=== PATIENT | female | born 1990 | race Caucasian/White ===

== ENCOUNTER 2019-09-30 06:29 | Emergency (ER) | payer BC ==
[2019-09-30 06:38] VITALS: RESP 14; TEMP 97.9
[2019-09-30] MEDS ORDERED: SODIUM CHLORIDE 0.9% 1,000 ML IV STA (06:50)
--- NOTE | 2019-09-30 06:55 | ED ---
General Adult HPI - General Source: patient, family Mode of arrival: ambulatory Limitations: no limitations <Alex Velasco - Last Filed: 09/30/19 08:20> <Corina Slater - Last Filed: 09/30/19 21:40> - General Chief complaint: Syncope Stated complaint: 14wks, syncope Time Seen by Provider: 09/30/19 06:41 - History of Present Illness Initial comments: 29-year-old female currently 14 weeks presents to the emergency department for a chief complaint of syncopal episode. Patient states that she got up early this morning to help her get ready for work. States that she was walking to the kitchen when she felt a sudden "gas pain" in her upper abdomen. He states that it was not severe but at the same time she started to get tunnel vision. States that a moment later she woke up on the floor with her over her. Patient states that the pain is completely gone at this time. She denies any associated chest pain or shortness of breath. States she is feeling normal at this time. Patient has had a confirmed intrauterine . Patient has no other complaints at this time including shortness of breath, chest pain, nausea or vomiting, headache, or visual changes. (Alex Velasco) - Related Data Previous Rx's Medication Instructions Recorded Acetaminophen-Codeine 300-30mg 1 each PO Q4HR PRN #20 tab 03/30/16 [Tylenol w/codeine #3] Ibuprofen [Motrin] 600 mg PO Q6HR PRN #0 tab 03/30/16 Sennosides-Docusate Sodium 2 each PO BID@0800,2000 tab 03/30/16 [Senokot-S] Allergies Allergy/AdvReac Type Severity Reaction Status Date / Time No Known Allergies Allergy Verified 03/27/16 06:10 Review of Systems ROS Other: All systems not noted in ROS Statement are negative. <Alex Velasco - Last Filed: 09/30/19 08:20> ROS Other: All systems not noted in ROS Statement are negative. <Corina Slater - Last Filed: 09/30/19 21:40> ROS Statement: Those systems with pertinent positive or pertinent negative responses have been documented in the HPI. Past Medical History Past Medical History: No Reported History History of Any Multi-Drug Resistant Organisms: None Reported Past Surgical History: Cholecystectomy Additional Past Surgical History / Comment(s): wisdom teeth 2009 Past Anesthesia/Blood Transfusion Reactions: No Reported Reaction Past Psychological History: No Psychological Hx Reported Smoking Status: Never smoker Past Alcohol Use History: None Reported Past Drug Use History: None Reported - Past Family History Mother Family Medical History: No Reported History <Alex Velasco P - Last Filed: 09/30/19 08:20> General Exam Limitations: no limitations General appearance: alert, in no apparent distress Head exam: Present: atraumatic, normocephalic, normal inspection Eye exam: Present: normal appearance, PERRL, EOMI. Absent: scleral icterus, conjunctival injection, periorbital swelling ENT exam: Present: normal exam, mucous membranes moist Neck exam: Present: normal inspection, full ROM. Absent: tenderness, meningismus, lymphadenopathy Respiratory exam: Present: normal lung sounds bilaterally. Absent: respiratory distress, wheezes, rales, rhonchi, stridor Cardiovascular Exam: Present: regular rate, normal rhythm, normal heart sounds. Absent: systolic murmur, diastolic murmur, rubs, gallop, clicks GI/Abdominal exam: Present: soft, normal bowel sounds. Absent: distended, tenderness, guarding, rebound, rigid Extremities exam: Absent: calf tenderness <Alex Velasco - Last Filed: 09/30/19 08:20> Course Vital Signs 09/30/19 09/30/19 06:32 08:00 Temperature 97.9 F 97.9 F Pulse Rate 132 H 101 H Respiratory 14 14 Rate Blood Pressure 142/86 124/80 O2 Sat by Pulse 97 99 Oximetry EKG Findings - EKG Comments: EKG Findings:: Sinus tachycardia, ventricular rate 124, IL interval 138, QTC 448 <Alex Velasco P - Last Filed: 09/30/19 08:20> Medical Decision Making - Lab Data Result diagrams: 09/30/19 06:58 09/30/19 06:58 <Alex Velasco - Last Filed: 09/30/19 08:20> - Lab Data Result diagrams: 09/30/19 06:58 09/30/19 06:58 <Corina Slater - Last Filed: 09/30/19 21:40> - Medical Decision Making Patient presents initially tachycardic. She is very anxious at presentation. HPI and physical exam as documented. Patient does not have any vaginal bleeding or lower abdominal pain. She did have one episode of epigastric discomfort that has completely resolved. She states she is feeling her normal self at this time. CBC is unremarkable. CMP unremarkable as well. Patient was given a liter of fluids. We did attempt heart sounds however these were unsuccessful. Therefore ultrasound was ordered which showed a single viable intrauterine with a heart rate of 160. EKG showed sinus tachycardia with a ventricular rate of 124. Troponin negative. A d-dimer 0.71. When adjusted for second trimester this is less then 1.00 which is the recommended cut off value for CT for PE. However I did discuss concern with patient as well as her and offered CAT scan. Patient and her did speak about this and at this time as she feels completely normal without any symptoms of chest pain or shortness of breath she declines CAT scan. However she is agreeable to return for any worsening symptoms under strict return parameters. Patient's heart rate did improve to 101 after fluids. She will al so follow up with her [facility] [employer] [facility] by calling today for an appointment. (Alex Velasco) I was available for consultation in the emergency department. The history and physical exam were done by the midlevel provider. I was consulted for this patients care. I reviewed the case with the midlevel provider and based on their presentation of the patient, I agree with the assessment, medical decision making and plan of care as documented. Chart was dictated using codebender dictation software. Attempts were made to correct any dictation errors however some typographical errors may persist. Patient was seen during a national state of emergency due to the Covid-19 pandemic. (Corina Slater) - Lab Data Lab Results 09/30/19 09/30/19 09/30/19 Range/Units 06:58 06:58 06:58 WBC 8.9 (3.8-10.6) k/uL RBC 4.35 (3.80-5.40) m/uL Hgb 13.9 (11.4-16.0) gm/dL Hct 42.0 (34.0-46.0) % MCV 96.4 (80.0-100.0) fL MCH 32.0 (25.0-35.0) pg MCHC 33.2 (31.0-37.0) g/dL RDW 13.6 (11.5-15.5) % Plt Count 286 (150-450) k/uL Neutrophils % 77 % Lymphocytes % 13 % Monocytes % 5 % Eosinophils % 3 % Basophils % 1 % Neutrophils # 6.8 (1.3-7.7) k/uL Lymphocytes # 1.2 (1.0-4.8) k/uL Monocytes # 0.4 (0-1.0) k/uL Eosinophils # 0.2 (0-0.7) k/uL Basophils # 0.1 (0-0.2) k/uL PT 9.5 (9.0-12.0) sec INR 0.9 (<1.2) APTT 21.1 L (22.0-30.0) sec D-Dimer (<0.60) mg/L FEU Sodium 136 L (137-145) mmol/L Potassium 3.6 (3.5-5.1) mmol/L Chloride 106 (98-107) mmol/L Carbon Dioxide 20 L (22-30) mmol/L Anion Gap 10 mmol/L BUN 9 (7-17) mg/dL Creatinine 0.46 L (0.52-1.04) mg/dL Est GFR (CKD-EPI)AfAm >90 (>60 ml/min/1.73 sqM) Est GFR (CKD-EPI)NonAf >90 (>60 ml/min/1.73 sqM) Glucose 102 H (74-99) mg/dL Calcium 9.5 (8.4-10.2) mg/dL Magnesium 1.6 (1.6-2.3) mg/dL Total Bilirubin 1.2 (0.2-1.3) mg/dL AST 21 (14-36) U/L ALT 11 (4-34) U/L Alkaline Phosphatase 73 (38-126) U/L Troponin I (0.000-0.034) ng/mL Total Protein 7.7 (6.3-8.2) g/dL Albumin 4.0 (3.5-5.0) g/dL Urine Color Urine Appearance (Clear) Urine pH (5.0-8.0) Ur Specific [place] (1.001-1.035) Urine Protein (Negative) Urine Glucose (UA) (Negative) Urine Ketones (Negative) Urine Blood (Negative) Urine Nitrite (Negative) Urine Bilirubin (Negative) Urine Urobilinogen (<2.0) mg/dL Ur Leukocyte Esterase (Negative) 09/30/19 09/30/19 09/30/19 Range/Units 06:58 06:58 07:01 WBC (3.8-10.6) k/uL RBC (3.80-5.40) m/uL Hgb (11.4-16.0) gm/dL Hct (34.0-46.0) % MCV (80.0-100.0) fL MCH (25.0-35.0) pg MCHC (31.0-37.0) g/dL RDW (11.5-15.5) % Plt Count (150-450) k/uL Neutrophils % % Lymphocytes % % Monocytes % % Eosinophils % % Basophils % % Neutrophils # (1.3-7.7) k/uL Lymphocytes # (1.0-4.8) k/uL Monocytes # (0-1.0) k/uL Eosinophils # (0-0.7) k/uL Basophils # (0-0.2) k/uL PT (9.0-12.0) sec INR (<1.2) APTT (22.0-30.0) sec D-Dimer 0.71 H (<0.60) mg/L FEU Sodium (137-145) mmol/L Potassium (3.5-5.1) mmol/L Chloride (98-107) mmol/L Carbon Dioxide (22-30) mmol/L Anion Gap mmol/L BUN (7-17) mg/dL Creatinine (0.52-1.04) mg/dL Est GFR (CKD-EPI)AfAm (>60 ml/min/1.73 sqM) Est GFR (CKD-EPI)NonAf (>60 ml/min/1.73 sqM) Glucose (74-99) mg/dL Calcium (8.4-10.2) mg/dL Magnesium (1.6-2.3) mg/dL Total Bilirubin (0.2-1.3) mg/dL AST (14-36) U/L ALT (4-34) U/L Alkaline Phosphatase (38-126) U/L Troponin I <0.012 (0.000-0.034) ng/mL Total Protein (6.3-8.2) g/dL Albumin (3.5-5.0) g/dL Urine Color Yellow Urine Appearance Clear (Clear) Urine pH 6.0 (5.0-8.0) Ur Specific [place] 1.022 (1.001-1.035) Urine Protein Trace H (Negative) Urine Glucose (UA) Negative (Negative) Urine Ketones Negative (Negative) Urine Blood Negative (Negative) Urine Nitrite Negative (Negative) Urine Bilirubin Negative (Negative) Urine Urobilinogen 2.0 (<2.0) mg/dL Ur Leukocyte Esterase Negative (Negative) Disposition Is patient prescribed a controlled substance at d/c from ED?: No Time of Disposition: 08:19 <Alex Velasco - Last Filed: 09/30/19 08:20> <Corina Slater - Last Filed: 09/30/19 21:40> Clinical Impression: Syncope Disposition: HOME SELF-CARE Condition: Good Instructions (If sedation given, give patient instructions): Syncope (ED) Additional Instructions: Please follow up closely with primary care as well as [facility] [employer] [facility]. If you have any worsening symptoms such as chest pain, shortness of breath, or if you pass out again return to the emergency room. Referrals: Hernan Naranjo MD [REFERRING] - 1-2 days Lydia Evans MD [STAFF PHYSICIAN] - 1-2 days
[2019-09-30 07:09] LABS: Basophils # (A) 0.1 k/uL (0-0.2); Basophils % (A) 1 %; Eosinophils # (A) 0.2 k/uL (0-0.7); Eosinophils % (A) 3 %; HGB 13.9 gm/dL (11.4-16.0); Lymphocytes # (A) 1.2 k/uL (1.0-4.8); Lymphocytes % (A) 13 %; MCHC 33.2 g/dL (31.0-37.0); MCV 96.4 fL (80.0-100.0); Mean Platelet Volume 7.1; Monocytes # (A) 0.4 k/uL (0-1.0); Monocytes % (A) 5 %; Neutrophils # (A) 6.8 k/uL (1.3-7.7); Neutrophils % (A) 77 %; Platelet Count 286 k/uL (150-450); RBC 4.35 m/uL (3.80-5.40); RDW 13.6 % (11.5-15.5); WBC 8.9 k/uL (3.8-10.6)
[2019-09-30 07:20] LABS: ALT 11 U/L (4-34); AST 21 U/L (14-36); African American GFR (CKD) >90 (>60 ml/min/1.73 sqM); Alkaline Phosphatase 73 U/L (38-126); Anion Gap 10 mmol/L; Blood Urea Nitrogen 9 mg/dL (7-17); Calcium 9.5 mg/dL (8.4-10.2); Carbon Dioxide 20 mmol/L (22-30); Chloride 106 mmol/L (98-107); Glucose 102 mg/dL (74-99); Magnesium 1.6 mg/dL (1.6-2.3); Non-African American GFR(CKD) >90 (>60 ml/min/1.73 sqM); Potassium 3.6 mmol/L (3.5-5.1); Sodium 136 mmol/L (137-145); Total Bilirubin 1.2 mg/dL (0.2-1.3); Total Protein 7.7 g/dL (6.3-8.2)
[2019-09-30 07:26] LABS: Appearance,Urine Clear (Clear); Bilirubin,Urine Negative (Negative); Blood,Urine Negative (Negative); Color,Urine Yellow; Glucose,Urine (UA) Negative (Negative); Ketones,Urine Negative (Negative); Leukocyte Esterase,Urine Negative (Negative); Nitrite,Urine Negative (Negative); Protein,Urine Trace (Negative); Specific Gravity,Urine 1.022 (1.001-1.035)
[2019-09-30 07:28] LABS: INR 0.9 (<1.2); Prothrombin Time 9.5 sec (9.0-12.0)
[2019-09-30 07:52] LABS: Partial Thromboplastin Time 21.1 sec (22.0-30.0)
--- NOTE | 2019-09-30 08:03 | US ---
EXAMINATION TYPE: US OB >= 14 wk fetus DATE OF EXAM: 09/30/2019 COMPARISON: None CLINICAL HISTORY: syncope TECHNIQUE: Transabdominal (TA) GESTATIONAL AGE / DATING Physician Established: Not yet established Dates by LMP: (14 weeks/5 days) EDC: 03/25/2020 Dates by First Scan: No previous this is first scan Dates by Current Scan: (16 weeks/1 days) EDC: 03/15/2020 Beta HCG (if available): Not available at this time SURVEY IUP: Single PLACENTA: Anterior PREVIA: Low Lying ZACKARY: 11.2 cm Normal CERVICAL LENGTH (transabdominal: norm > 3.0cm): 3.3 cm BIOMETRY PRESENTATION: Vertex LIE: Transverse with head maternal Left BPD: 3.2 cm 16 weeks / 0 days HC: 12.2 cm 16 weeks / 1 days AC: 10.2 cm 16 weeks / 2 days FL: 1.9 cm 15 weeks / 5 days ESTIMATED WEIGHT IN GRAMS: 140 grams ESTIMATED WEIGHT IN LBS/OZ: 0 lbs. 5 oz. WEIGHT PERCENTAGE BASED ON ESTABLISHED DATES: >98% HC/AC: 1.2 Normal FL/AC: 19% HEART RATE: 160 bpm RHYTHM: Normal Viable IUP with an BEVERLY of 03/15/2020. Multiple probable placental lakes visualized, largest measuring 3.1 x 1.1 x 4.3 cm IMPRESSION: Single viable intrauterine as noted.
[2019-09-30 08:20] VITALS: BP 124/80; PULSE 101
== END 2019-09-30 08:31 | disposition home or self-care (01) ==
LOC: EC 06:29
DX: O26.892 Other specified pregnancy related conditions, second trimester (principal); R55 Syncope and collapse; O99.89 Other specified diseases and conditions complicating pregnancy, childbirth and the puerperium; R00.0 Tachycardia, unspecified; Z3A.15 15 weeks gestation of pregnancy
CPT/HCPCS: 36415; 76805; 80053; 81003; 83735; 84484; 85025; 85379; 85610; 85730; 93005; 96360; 99284

== ENCOUNTER 2020-03-08 04:09 | Inpatient (IN) | payer BC ==
[2020-03-08] MEDS ORDERED: CELLULOSE,OXIDIZED 1 EACH EACH MISCELLANE ONE (06:30)
[2020-03-08] MEDS ORDERED: METHYLERGONOVINE 0.2 MG/ML 1 ML AMP IM PRN (07:40)
[2020-03-08] MEDS ORDERED: TERBUTALINE 1 MG/ML VIAL SQ PRN (07:40)
[2020-03-08] MEDS ORDERED: OXYTOCIN 10 UNIT/ML 1 ML VIAL IM PRN (07:40)
[2020-03-08] MEDS ORDERED: LIDOCAINE 0.5% (PF) 5 MG/ML (50 ML SDV) SQ PRN (07:40)
[2020-03-08] MEDS ORDERED: CARBOPROST TROMETHAMINE 250 MCG/ML 1 ML AMP IM PRN (07:40)
[2020-03-08] MEDS: LACTATED RINGERS 1,000 ML IV SCH ×4 (08:02→23:57)
[2020-03-08 08:21] LABS: Basophils # (A) 0.1 k/uL (0-0.2); Basophils % (A) 1 %; Eosinophils # (A) 0.1 k/uL (0-0.7); Eosinophils % (A) 1 %; HCT 41.1 % (34.0-46.0); HGB 13.5 gm/dL (11.4-16.0); Lymphocytes # (A) 1.5 k/uL (1.0-4.8); Lymphocytes % (A) 13 %; MCH 31.1 pg (25.0-35.0); MCHC 32.9 g/dL (31.0-37.0); MCV 94.5 fL (80.0-100.0); Mean Platelet Volume 7.3; Monocytes # (A) 0.6 k/uL (0-1.0); Monocytes % (A) 5 %; Neutrophils # (A) 9.4 k/uL (1.3-7.7); Neutrophils % (A) 80 %; Platelet Count 299 k/uL (150-450); RBC 4.35 m/uL (3.80-5.40); RDW 13.3 % (11.5-15.5); WBC 11.8 k/uL (3.8-10.6)
--- NOTE | 2020-03-08 09:46 | P.HPOB ---
History of Present Illness H&P Date: 03/08/20 Chief Complaint: Labor at 37-5/7 weeks This is a 30 year old 2 para 1001 woman with an estimated due date of 03/25/2020 based on LMP consistent with first trimester ultrasound. She presents with spontaneous onset of labor stopped starting at approximately 2:30 AM. She did have some bloody show and thought perhaps her water was broken. Upon initial evaluation in labor and delivery triage amnio sure test was negative but she was anthony spontaneously. She was observed in triage and did dilate her cervix from 1-2 cm during observation. Her history is sign ificant for a previous low transverse section on the and she was considering a trial of labor. Her has been otherwise uncomplicated. Obstetric history is significant for previous low transverse section at 41 weeks with arrest of descent and dilatation at approximately 7 cm. Findings at the time of surgery were significant for occiput transverse position and infant weighing 9 lbs. 4 oz. At 36 weeks estimated weight by ultrasound is greater than the 99th perce ntile. She had been counseled regarding options for delivery. I recommended repeat low transverse section at term based on estimated weight as well as events of prior . Risks of trial of labor the been reviewed on multiple occasions and most recently 1 week ago including uterine rupture, distress and possible shoulder dystocia with vaginal delivery. She has now presented in spontaneous active labor at 37-5/7 weeks she is wanting a trial of labor. Laboratory data: Blood type O positive, antibody screen negative, rubella immune, VDRL nonreactive, hep Shannan surface antigen negative, HIV negative, chronic cultures negative, diabetes screening within normal limits, group B strep negative. Review of Systems All systems: negative Past Medical History Past Medical History: No Reported History History of Any Multi-Drug Resistant Organisms: None Reported Past Surgical History: Section, Cholecystectomy Additional Past Surgical History / Comment(s): wisdom teeth 2009 Past Anesthesia/Blood Transfusion Reactions: No Reported Reaction Past Psychological History: No Psychological Hx Reported Smoking Status: Never smoker Past Alcohol Use History: None Reported Past Drug Use History: None Reported - Past Family History Mother Family Medical History: No Reported History Father Family Medical History: Thyroid Disorder Medications and Allergies Home Medications Medication Instructions Recorded Confirmed Type Pnv No.95/Ferrous Fum/Folic AC 1 each PO DAILY 03/08/20 03/08/20 History [ Multivitamin Tablet] Allergies Allergy/AdvReac Type Severity Reaction Status Date / Time No Known Allergies Allergy Verified 03/08/20 04:10 Exam Vital Signs Temp Pulse Resp BP Pulse Ox 03/08/20 07:27 97.5 F L 97 16 129/77 99 03/08/20 05:29 97.3 F L 113 H 16 136/85 100 Intake and Output 03/07/20 03/08/20 03/08/20 22:59 06:59 14:59 Other: Weight 93.894 kg 93.894 kg Targeted physical examination performed. This is a visibly gravid female in active labor. Estimated weight is approximately 9-9-1/2 pounds. On pelvic exam the cervix is 3 cm dilated 60% effaced and the vertex is in the -3 station. Head is ballotable. heart tones are currently category 1 and she is anthony every 1-4 minutes spontaneously. Results Result Diagrams: 03/08/20 08:00 Abnormal Lab Results - Last 24 Hours (Table) 03/08/20 Range/Units 08:00 WBC 11.8 H (3.8-10.6) k/uL Neutrophils # 9.4 H (1.3-7.7) k/uL Assessment and Plan (1) Spontaneous onset of labor Current Visit: Yes Status: Acute Code(s): NYL0667 - SNOMED Code(s): 61100136 (2) History of Current Visit: Yes Status: Acute Code(s): Z98.891 - HISTORY OF UTERINE SCAR FROM PREVIOUS SURGERY SNOMED Code(s): 054269629 (3) macrosomia Current Visit: Yes Status: Acute Code(s): O36.60X0 - MATERNAL CARE FOR EXCESS GROWTH, UNSP TRIMESTER, UNSP SNOMED Code(s): 05487673 Plan: 30-year-old 2 para 1 woman admitted at 37-5/7 weeks gestation in spontaneous active labor. History of previous low transverse section for arrest of descent and dilatation with occiput transverse infant weighing 9 lbs. 4 oz. Estimated weight by recent ultrasound is greater than the 99th percentile. The patient has been counseled both previously in the office and regarding risks and benefits of trial of labor. It is reasonable as she is in spontaneous labo prior to her due date to attempt vaginal after . Should she follow off the labor curve, not having normal progression of the descent and dilatation I will recommend proceeding to section. The patient and her seemed to have very good grasp on the pros and cons of the situation and we will follow closely. She is group B strep negative and Rh+. The anesthesiology team and is aware of trial of labor after on the floor.
[2020-03-08] MEDS ORDERED: BUTORPHANOL 1 MG/ML 1 ML VIAL IV PRN (10:40)
[2020-03-08] MEDS ORDERED: CITRIC ACID-SODIUM CITRATE 15 ML CUP PO ONE (11:44)
--- NOTE | 2020-03-08 12:00 | P.PN ---
Progress Note - Text Progress Note Date: 03/08/20 Upon reassessment she is 4/80/-3. Ctx q 2-4 minutes. She is more confortable with stadol IV. She is discouraged and is wanting to proceed to rpt c/s. I reviewed normal labor curve and discussed option of more time to naturaly labor. She is concerned about laboring longer and still ending up with a C/S. She hand her agree they would like to proceed to rpt c/s at this time. status is reassuring and [employer] is alerted. Will proceed.
[2020-03-08] MEDS ORDERED: ePHEDrine SULFATE/0.9% NACL/PF 50 MG/5 ML SYRINGE IV ONE (12:17)
[2020-03-08] MEDS ORDERED: ONDANSETRON 4 MG/2 ML VIAL ONE (12:17)
[2020-03-08] MEDS ORDERED: MORPHINE SULFATE (PF) 0.3 MG/0.3 ML SYR ONE (12:17)
[2020-03-08] MEDS ORDERED: NALBUPHINE 10 MG/ML (1 ML AMP) ONE (12:17)
[2020-03-08] MEDS ORDERED: OXYTOCIN 10 UNIT/ML 1 ML VIAL ONE (12:17)
[2020-03-08] MEDS ORDERED: MORPHINE SULFATE 2 MG/ML SYRINGE IVP PRN (12:45)
[2020-03-08] MEDS ORDERED: ONDANSETRON 4 MG/2 ML VIAL IVP PRN ×2 (12:45→13:16)
[2020-03-08] MEDS ORDERED: NALOXONE 0.4 MG/ML 1 ML VIAL IV PRN ×2 (12:45→13:16)
[2020-03-08] MEDS ORDERED: diphenhydrAMINE 50 MG/ML 1 ML VIAL IVP PRN ×3 (12:45→13:16)
[2020-03-08] MEDS ORDERED: HYDROcodone/APAP 5-325MG 1 EACH TAB PO PRN (13:16)
[2020-03-08] MEDS ORDERED: IBUPROFEN 600 MG TAB PO PRN (13:16)
[2020-03-08] MEDS ORDERED: diphenhydrAMINE 50 MG CAP PO PRN (13:16)
[2020-03-08] MEDS ORDERED: diphenhydrAMINE 25 MG CAP PO PRN (13:16)
[2020-03-08] MEDS ORDERED: ZOLPIDEM 5 MG TAB PO PRN (13:16)
[2020-03-08] MEDS ORDERED: ACETAMINOPHEN TAB 325 MG TAB PO PRN (13:16)
[2020-03-08] MEDS ORDERED: METOCLOPRAMIDE 5 MG/ML 2 ML VIAL IVP PRN (13:16)
--- NOTE | 2020-03-08 13:16 | P.OP ---
Date of Procedure: 03/08/20 Preoperative Diagnosis: If labor at 37-4/7 weeks' gestation Previous low transverse section Suspected macrosomia Postoperative Diagnosis: Spontaneous labor at 37-4/7 weeks' gestation History of previous low transverse section occiput transverse Procedure(s) Performed: Repeat low transverse section Anesthesia: spinal Surgeon: Lydia Evans Shear Operator Helper #1: Rose Francois Estimated Blood Loss (ml): 500 IV fluids (ml): 1,000 Pathology: none sent Condition: stable Disposition: floor Indications for Procedure: This is a 30-year-old 2 para 1001 woman who presented in spontaneous active labor at 37-4/7 weeks' gestation. She has a history of a previous low transverse section. Initially she had hoped for trial of labor however as her labor progressed on she and her the decision to proceed with section. She had an ultrasound approximately 1 week prior to her labor that did indicate an in the greater than 99th percentile. Operative Findings: Male in the vertex right occiput transverse position with Apgars of 7 at 1 minute and 9 at 5 minutes weighing 7 pounds, 15 ounces, 3605 g. Intact, three-vessel cord placenta. Scarring of the anterior bladder to the midportion of the uterus. Significant soft tissue edema in the subcu as well as serosal uterine tissue. Description of Procedure: After the patient was met preoperatively and all questions were answered, she was taken to the operating room where spinal anesthetic was administered without incident. She was then positioned, prepped and draped in the dorsal supine position with a leftward tilt. Ryan catheter was placed. After anesthetic was confirmed adequate, a low transverse skin incision was made following the pre-existing scar. This was carried down to the underlying fascia both sharply and with the electrocautery. The fascia was then incised in the midline and extended bilaterally with the Gill scissors. The superior aspect of the fascial incision was elevated and the underlying rectus muscles dissected off sharply and with the electrocautery. The inferior aspect of the fascial incision was also elevated and the underlying rectus muscles dissected off sharply. The muscles were adherent in the midline. These were bluntly and the peritoneum was tented up with hemostats. The peritoneum was entered sharply with the Metzenbaum scissors. The peritoneal incision was extended inferiorly and superiorly with good visualization of the bladder. The bladder blade was placed. The vesicouterine peritoneum was identified, tented up and entered sharply, the bladder flap was created both sharply and digitally. A low transverse uterine incision was then made sharply and carried down to the underlying amniotic membranes. Membranes were ruptured and clear fluid was noted. The uterine incision was extended bilaterally bluntly. The 's head was delivered from the incision without difficulty. The nose and mouth were bulb suctioned. The rest of the infant was delivered onto the field without difficulty. And cut and the infant was taken to the warmer. An intact, three-vessel cord placenta was then manually removed and the uterus was exteriorized. The uterus was cleared of all clot and debris. The uterine incision was delineated with Carrion clamps. The uterine incision was then closed in a running locked fashion with 0 Vicryl suture. Additional [id number] sutures were placed where necessary along the incision for hemostasis. There were mild areas on the left fundal and cornual regions that were hyperemic and using. Gentle Bovie electrocautery was utilized in this area for hemostasis. Of note there was also some hematoma in the area immediately adjacent to the right fallopian tube however this did not appear to extend down into the uterine or pelvic vasculature. This was observed and was not noted to be increasing in size. A piece of Interceed was placed across the left cornual area when the uterus was returned to the abdomen. The uterus was then returned to the abdomen and the gutters were cleared of all clot and debris. The uterine incision was reinspected and Bovie electrocautery was utilized were necessary for hemostasis. The fascial edges, peritoneal edges and rectus muscles were inspected and Bovie electrocautery utilized were necessary for hemostasis. The fascia was then closed in a running fashion with 0 Vicryl suture. The subcuticular tissue was copiously suction irrigated and Bovie electrocautery utilized were necessary for hemostasis. 3-0 Vicryl suture was utilized to reapproximate the subcuticular tissue. The skin was then closed in a subcutaneous fashion with 4-0 Vicryl suture. All counts reported to me as correct by the operating room staff at the end of the procedure. The patient received antibiotics preoperatively and Pitocin following cord clamp. Mother and infant were both transported from the room in stable condition.
[2020-03-08] MEDS ORDERED: ACETAMINOPHEN IV (For NPO) 1,000 MG in EMPTY BAG 1 BAG IVPB STA (14:01)
[2020-03-08] MEDS ORDERED: IBUPROFEN IV 800 MG in SODIUM CHLORIDE 0.9% 250 ML IV PRN (18:00)
[2020-03-08] MEDS: SENNOSIDES-DOCUSATE SODIUM 1 EACH TAB PO SCH (23:57)
--- NOTE | 2020-03-09 06:29 | P.PN ---
Progress Note - Text Postoperative day 1 status post section under spinal anesthesia, and intrathecal morphine given for postoperative analgesia, patient doing well, there is a anesthesia related competitions. Patient had no headache, vital signs stable Assessment and plan = postop day 1 status post , doing well there is no anesthesia related complication
[2020-03-09] MEDS: LACTATED RINGERS 1,000 ML IV SCH (06:50)
--- NOTE | 2020-03-09 07:22 | P.PNOBGPC ---
Subjective - Subjective Principal diagnosis: Postop day 1 Interval history: Feeling very well, no bowel movement at. Patient reports: Reports appetite normal, Reports voiding normally, Reports pain well controlled, Reports ambulating normally : doing well (In nursery, cleft palate, mild desaturations with feedings.) Objective - Vital Signs Latest vital signs: Vital Signs Temp Pulse Resp BP Pulse Ox 03/09/20 06:00 14 03/09/20 04:00 98.2 F 97 16 111/65 99 03/09/20 02:00 16 03/08/20 23:54 98.2 F 89 16 103/57 99 03/08/20 22:00 16 03/08/20 20:00 98.3 F 104 H 16 127/77 98 03/08/20 17:45 95 03/08/20 17:00 17 94 L 03/08/20 16:00 98.0 F 106 H 18 116/70 03/08/20 15:45 16 100 03/08/20 15:27 98 F 104 H 16 121/71 100 03/08/20 14:57 107 H 16 120/72 100 03/08/20 14:27 102 H 16 129/75 100 03/08/20 14:12 114 H 16 131/76 99 03/08/20 13:57 118 H 16 130/79 100 03/08/20 13:45 16 100 03/08/20 13:42 125 H 16 132/77 03/08/20 13:27 96.5 F L 125 H 16 130/70 100 03/08/20 12:45 16 100 03/08/20 07:27 97.5 F L 97 16 129/77 99 Intake and Output 03/08/20 03/09/20 03/09/20 22:59 06:59 14:59 Output Total 550 1600 Balance -550 -1600 Output: Urine 550 1600 Straight 1000 Uretheral (Ryan) 250 Other: Voiding Method Indwelling Catheter - Exam Extremities: Present: normal, edema Abdomen: Present: normal appearance, soft. Absent: distention, tenderness Incision: Present: normal, dry, dressed Uterus: Present: normal, firm. Absent: tenderness - Labs Labs: Abnormal Lab Results - Last 24 Hours (Table) 03/08/20 Range/Units 08:00 WBC 11.8 H (3.8-10.6) k/uL Neutrophils # 9.4 H (1.3-7.7) k/uL Assessment and Plan (1) Spontaneous onset of labor Current Visit: Yes Status: Acute Code(s): [id number] - SNOMED Code(s): 73696498 (2) History of Current Visit: Yes Status: Acute Code(s): Z98.891 - HISTORY OF UTERINE SCAR FROM PREVIOUS SURGERY SNOMED Code(s): 924030971 (3) S/P repeat low transverse Current Visit: Yes Status: Acute Code(s): Z98.891 - HISTORY OF UTERINE SCAR FROM PREVIOUS SURGERY SNOMED Code(s): 529660690 Plan: Postop day 1 status post repeat low transverse section. and special care nursery with cleft palate. She is recovering well, routine care.
[2020-03-09] MEDS: SENNOSIDES-DOCUSATE SODIUM 1 EACH TAB PO SCH (08:08)
[2020-03-09 08:18] LABS: Basophils % (A) 0 %; Eosinophils # (A) 0.1 k/uL (0-0.7); Eosinophils % (A) 1 %; HCT 35.3 % (34.0-46.0); HGB 11.2 gm/dL (11.4-16.0); Hypochromasia Slight; Lymphocytes # (A) 1.2 k/uL (1.0-4.8); Lymphocytes % (A) 9 %; MCH 30.7 pg (25.0-35.0); MCHC 31.7 g/dL (31.0-37.0); Mean Platelet Volume 7.5; Monocytes # (A) 0.6 k/uL (0-1.0); Monocytes % (A) 5 %; Neutrophils # (A) 10.8 k/uL (1.3-7.7); Neutrophils % (A) 84 %; Platelet Count 237 k/uL (150-450); RBC 3.64 m/uL (3.80-5.40); RDW 13.3 % (11.5-15.5); WBC 12.9 k/uL (3.8-10.6)
[2020-03-09 08:53] VITALS: RESP 18
[2020-03-09 18:15] VITALS: BP 114/72; PULSE 72; TEMP 98.6
== END 2020-03-09 18:18 | disposition home or self-care (01) | DRG 788 ==
LOC: FBPOP 04:09 → 4FBP 07:20
PROVIDERS: ADMIT Obstetrics & Gynecology; ATTEND Obstetrics & Gynecology
PROC: 10D00Z1 Extraction of Products of Conception, Low, Open Approach (ICD-10-PCS; principal; 2020-03-08 12:27)
DX: O34.211 Maternal care for low transverse scar from previous cesarean delivery (principal); O36.63X0 Maternal care for excessive fetal growth, third trimester, not applicable or unspecified; Z37.0 Single live birth; Z3A.37 37 weeks gestation of pregnancy; Z90.49 Acquired absence of other specified parts of digestive tract; Z83.49 Family history of other endocrine, nutritional and metabolic diseases
CPT/HCPCS: 59025; 84112; 85025; 86850; 86900; 86901; 99213